=== PATIENT | male | born 2000 | race Two or more races ===

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

== ENCOUNTER 2020-06-07 09:15 | Emergency (ER) | payer OTHER ==
[2020-06-07 09:23] VITALS: BP 139/92; PULSE 89; TEMP 98.1; BMI 32.1
[2020-06-07] MEDS ORDERED: IBUPROFEN 600 MG TABLET (FP) PO ONE ×2 (09:43→10:08)
== END 2020-06-07 10:24 | disposition home or self-care (01) ==
LOC: JERFT 09:15
DX: S93.402A Sprain of unspecified ligament of left ankle, initial encounter (principal)
CPT/HCPCS: 73610-TC-LT-FY; 73630-TC-LT; 99283-25